=== PATIENT | male | born 2000 | race Caucasian/White ===

== ENCOUNTER 2023-03-12 12:58 | Emergency (ER) | payer BC, SELFPAY ==
[2023-03-12] MEDS ORDERED: Dexamethasone 10 MG/ML VIAL ONE (14:20)
[2023-03-12] MEDS ORDERED: Ondansetron PF 4 MG/2 ML Vial ONE (14:21)
[2023-03-12] MEDS ORDERED: Ketorolac Tromethamine 30 MG/ML VIAL ONE (14:21)
[2023-03-12] MEDS ORDERED: Morphine 4 MG/ML VIAL ONE (14:21)
[2023-03-12] MEDS ORDERED: Iopamidol 300 61% 100 ML VIAL FS ONE (15:11)
== END 2023-03-12 16:45 | disposition home or self-care (01) ==
LOC: CSHERS 12:58
DX: K04.7 Periapical abscess without sinus (principal); K02.9 Dental caries, unspecified; F17.210 Nicotine dependence, cigarettes, uncomplicated
CPT/HCPCS: 70491; 96374; 96375; J1100; J1885; J2270; J2405; Q9967

== ENCOUNTER 2023-03-14 12:39 | Emergency (ER) | payer SELFPAY ==
[2023-03-14] MEDS ORDERED: Ketorolac Tromethamine 30 MG/ML VIAL ONE (13:53)
== END 2023-03-14 14:30 | disposition home or self-care (01) ==
LOC: CSHERS 12:39
DX: K04.7 Periapical abscess without sinus (principal); F17.210 Nicotine dependence, cigarettes, uncomplicated; K02.9 Dental caries, unspecified
CPT/HCPCS: 96372; 99282; J1885

== ENCOUNTER 2023-03-16 12:46 | Emergency (ER) | payer SELFPAY ==
[2023-03-16] MEDS ORDERED: Iopamidol 300 61% 100 ML VIAL FS ONE (14:01)
[2023-03-16] MEDS ORDERED: Morphine 4 MG/ML VIAL ONE ×2 (14:28→16:27)
[2023-03-16] MEDS ORDERED: Ketorolac Tromethamine 30 MG/ML VIAL ONE (14:29)
[2023-03-16 14:32] LABS: #Basophils 0.1 10x3/uL (0.0-0.2); #Eosinphils 0.1 10x3/uL (0.0-0.5); #Monocytes 0.8 10x3/uL (0.0-1.1); #Neutrophils 5.8 10x3/uL (1.5-8.4); %Basophils 0.5 % (0.0-2.0); %Eosinophils 1.4 % (0.0-6.0); %Lymphocytes 26.6 % (18.0-47.0); %Monocytes 8.9 % (0.0-10.0); %Neutrophils 62.2 % (40.0-75.0); Hemoglobin 17.1 g/dL (13.5-17.5); Mean Corpuscular HGB CONC 34.5 g/dL (32.0-36.0); Mean Corpuscular Volume 89.8 fl (81.2-95.1); Mean Platelet Volume 8.8 fl (7.4-10.4); Platelet Count 280 10x3/uL (150-450); Red Blood Cell (RBC) Count 5.51 10x6/uL (4.32-5.72); White Blood Cell (WBC) Count 9.3 10x3/uL (3.5-10.5)
[2023-03-16] MEDS ORDERED: Ondansetron PF 4 MG/2 ML Vial ONE (14:32)
[2023-03-16 14:50] LABS: ALT (SGPT) 25 U/L (8-55); AST (SGOT) 17 U/L (5-34); Albumin 4.5 g/dL (3.5-5.0); Alkaline Phosphatase 50 U/L (40-110); Anion Gap 16 mmol/L (10-20); BUN (Urea Nitrogen) 13 mg/dL (8.9-20.6); Bilirubin, Total 0.6 mg/dL (0.2-1.2); Calc. Creatinine Clearance 0 mL/min (70-130); Calcium 10.1 mg/dL (7.8-10.44); Carbon Dioxide 23 mmol/L (22-29); Chloride 104 mmol/L (98-107); Estimated GFR 110; Globulin 3.2 g/dL (2.4-3.5); Glucose 146 mg/dL (70-105); Potassium 4.1 mmol/L (3.5-5.1); Protein, Total 7.7 g/dL (6.0-8.3); Sodium 139 mmol/L (136-145)
[2023-03-16 14:53] LABS: Actual Bicarbonate (HCO3v) 23 mEq/L (22-28); Base Excess -1.9 mEq/L (-2 - +2); Calcium, Ionized (venous) 1.26 mmol/L (1.16-1.32); Chloride (VBG) 98 mmol/L (98-106); Hemoglobin (Hb) 17.1 g/dL (13.2-17.3); Potassium (VBG) 3.96 mmol/L (3.70-5.30); Puncture Site Other Site; RapidComm Collect By CBN; Sodium 147.5 mmol/L (133-146); pH (venous) 7.39 (7.32-7.43)
== END 2023-03-16 16:42 | disposition home or self-care (01) ==
LOC: CSHERS 12:46
DX: K05.219 Aggressive periodontitis, localized, unspecified severity (principal); K12.2 Cellulitis and abscess of mouth
CPT/HCPCS: 70491; 80053; 82805; 83605; 85025; 96374; 96375; 96376; J1885; J2270; J2405; Q9967

== ENCOUNTER 2024-08-17 12:01 | Emergency (ER) | payer SELFPAY ==
[2024-08-17 12:33] LABS: #Basophils 0.03 10x3/uL (0.0-0.2); #Eosinphils 0.31 10x3/uL (0.0-0.5); #Monocytes 0.61 10x3/uL (0.0-1.1); #Neutrophils 2.92 10x3/uL (1.5-8.4); %Basophils 0.4 % (0.0-2.0); %Eosinophils 4.6 % (0.0-6.0); %Lymphocytes 41.8 % (18.0-47.0); %Monocytes 9.1 % (0.0-10.0); Hematocrit 51.4 % (38.8-50.0); Hemoglobin 17.6 g/dL (13.5-17.5); Mean Corpuscular HGB CONC 34.2 g/dL (32.0-36.0); Mean Corpuscular Hemoglobin 31.4 pg (27.0-33.0); Mean Corpuscular Volume 91.8 fL (81.2-95.1); Mean Platelet Volume 8.8 fL (7.4-10.4); Platelet Count 257 10x3/uL (150-450); RBC Distribution Width 11.9 % (11.5-14.5); White Blood Cell (WBC) Count 6.7 10x3/uL (3.5-10.5)
[2024-08-17 12:55] LABS: ALT (SGPT) 34 U/L (8-55); AST (SGOT) 25 U/L (5-34); Albumin 4.5 g/dL (3.5-5.0); Alkaline Phosphatase 58 U/L (40-110); Anion Gap 15 mmol/L (10-20); BUN (Urea Nitrogen) 12 mg/dL (8.9-20.6); Bilirubin, Total 0.8 mg/dL (0.2-1.2); Calc. Creatinine Clearance 0 mL/min (70-130); Carbon Dioxide 20 mmol/L (22-29); Chloride 107 mmol/L (98-107); Estimated GFR 101; Globulin 2.9 g/dL (2.4-3.5); Glucose 81 mg/dL (70-105); Potassium 4.2 mmol/L (3.5-5.1); Protein, Total 7.4 g/dL (6.0-8.3); Sodium 138 mmol/L (136-145)
[2024-08-17 12:58] LABS: Troponin I Less than 0.010 ng/mL (< 0.028)
[2024-08-17] MEDS ORDERED: Dexamethasone 10 MG/ML VIAL ONE (13:33)
== END 2024-08-17 14:22 | disposition home or self-care (01) ==
LOC: CSHERS 12:01
DX: J20.9 Acute bronchitis, unspecified (principal); F17.210 Nicotine dependence, cigarettes, uncomplicated
CPT/HCPCS: 71045; 80053; 83880; 84484; 85025; 93005; J1100

== ENCOUNTER → 2024-11-24 | Emergency (ER) | payer SELFPAY ==
[~2024-11-24] MED LIST: Ketorolac Tromethamine 30 MG (1 mL) VIAL ONE
== END ==
LOC: CSHERS 12:02
DX: J10.1 Influenza due to other identified influenza virus with other respiratory manifestations (principal); F17.210 Nicotine dependence, cigarettes, uncomplicated
CPT/HCPCS: 71046; 87428; 96372; J1885